=== PATIENT | male | born 1990 ===

== ENCOUNTER 2018-10-02 12:10 | Emergency (ER) | payer SELFPAY ==
[2018-10-02] MEDS ORDERED: Bacitracin Zinc 1 Packet ONE (12:42)
== END 2018-10-02 13:03 | disposition home or self-care (01) ==
LOC: ERS 12:10
DX: S61.202A Unspecified open wound of right middle finger without damage to nail, initial encounter (principal); E03.9 Hypothyroidism, unspecified; W26.0XXA Contact with knife, initial encounter; Y92.009 Unspecified place in unspecified non-institutional (private) residence as the place of occurrence of the external cause
CPT/HCPCS: 99283